=== PATIENT | female | born 1975 ===

== ENCOUNTER → 2019-07-14 00:10 | Emergency (ER) | payer SELFPAY | END | disposition left against medical advice (07) | LOC: ED 00:10 | DX: R10.9 Unspecified abdominal pain (principal); Z53.21 Procedure and treatment not carried out due to patient leaving prior to being seen by health care provider ==

== ENCOUNTER 2019-10-06 01:52 | Inpatient (IN) | payer OTHER ==
[2019-10-06] MEDS ORDERED: SODIUM CHLORIDE 0.9% 1000 ML 1,000 ML IV ONE ×2 (02:01→03:02)
[2019-10-06] MEDS ORDERED: ONDANSETRON 4 MG/2 ML INJ IV ONE (02:01)
[2019-10-06] MEDS ORDERED: MORPHINE 4 MG/1 ML INJ IV ONE (02:01)
[2019-10-06] MEDS ORDERED: ACETAMINOPHEN 500 MG TAB PO ONE (02:01)
--- NOTE | 2019-10-06 02:05 | Emergency Department Report ---
ED Abdominal Pain HPI - General Chief Complaint: Abdominal Pain Stated Complaint: ABD PAIN Time Seen by Provider: 10/06/19 01:57 Source: patient Mode of arrival: Stretcher Limitations: No Limitations - History of Present Illness Initial Comments: Patient is 44 years old female with no significant past medical history. Patient presented to the ER via EMS for evaluation of abdominal pain for the last 3 days associated with fever. Patient described her pain as lower abdominal pain, sharp in nature was no radiation. Patient denied any nausea or vomiting or diarrhea. MD Complaint: abdominal pain -: days(s) (3) Location: suprapubic Migration to: no migration Severity scale (0 -10): 6 Quality: sharp Consistency: constant - Related Data Allergies Allergy/AdvReac Type Severity Reaction Status Date / Time No Known Allergies Allergy Verified 10/06/19 03:21 ED Review of Systems ROS: Stated complaint: ABD PAIN Other details as noted in HPI Comment: All other systems reviewed and negative Constitutional: chills, fever Respiratory: denies: cough, orthopnea, shortness of breath, SOB with exertion, SOB at rest, wheezing Cardiovascular: denies: chest pain Gastrointestinal: abdominal pain. denies: diarrhea, hematemesis, melena, hematochezia Musculoskeletal: denies: back pain Neurological: denies: headache, weakness, numbness, paresthesias, confusion ED Past Medical Hx - Social History Smoking Status: Current Every Day Smoker Substance Use Type: Alcohol ED Physical Exam - General Limitations: No Limitations General appearance: alert, in no apparent distress - Head Head exam: Present: atraumatic, normocephalic, normal inspection - Eye Eye exam: Present: normal appearance - ENT ENT exam: Present: normal exam, mucous membranes dry - Neck Neck exam: Present: normal inspection, full ROM. Absent: tenderness, meningismus, lymphadenopathy, thyromegaly - Respiratory Respiratory exam: Present: normal lung sounds bilaterally - Cardiovascular Cardiovascular Exam: Present: tachycardia - GI/Abdominal GI/Abdominal exam: Present: soft, tenderness, normal bowel sounds. Absent: distended, guarding, rebound, rigid, organomegaly, mass, bruit, pulsatile mass, hernia - Extremities Exam Extremities exam: Present: normal inspection, full ROM, normal capillary refill. Absent: tenderness, pedal edema, calf tenderness - Back Exam Back exam: Present: normal inspection, full ROM. Absent: CVA tenderness (R), CVA tenderness (L), muscle spasm, paraspinal tenderness, vertebral tenderness - Neurological Exam Neurological exam: Present: alert, oriented X3, CN II-XII intact - Skin Skin exam: Present: warm, intact, normal color ED Course Vital Signs 10/06/19 10/06/19 10/06/19 01:58 02:23 02:31 Temperature 103.0 F H Pulse Rate 140 H 120 H Respiratory 18 18 Rate Blood Pressure 154/96 O2 Sat by Pulse 100 96 99 Oximetry 10/06/19 10/06/19 10/06/19 02:45 03:01 03:15 Temperature Pulse Rate 119 H 116 H 111 H Respiratory 24 27 H 15 Rate Blood Pressure 154/96 125/89 158/109 O2 Sat by Pulse 99 98 98 Oximetry 10/06/19 10/06/19 10/06/19 03:30 03:45 04:00 Temperature 99.9 F H Pulse Rate 110 H 107 H 107 H Respiratory 27 H 24 24 Rate Blood Pressure 139/95 147/95 161/113 O2 Sat by Pulse 99 99 99 Oximetry 10/06/19 10/06/19 04:15 05:05 Temperature Pulse Rate 108 H 107 H Respiratory 16 14 Rate Blood Pressure 143/89 143/89 O2 Sat by Pulse 99 Oximetry ED Medical Decision Making - Lab Data Result diagrams: 10/06/19 02:17 10/06/19 02:17 - Radiology Data Radiology results: report reviewed - Medical Decision Making Patient is 44 years old female with no significant past medical history. Patient presented to the ER via EMS for evaluation of abdominal pain for the last 3 days associated with fever. Patient described her pain as lower abdominal pain, sharp in nature was no radiation. Patient denied any nausea or vomiting or diarrhea. Patient labs reviewed and showed a lactic acid of 4.2. CT abdomen and pelvis showed a acute cholecystitis. I discussed the patient with Dr. Martinez, he advised to admit to the hospital and will follow-up with the patient. He also advised to order a right upper quadrant ultrasound. Patient given Zosyn. I discussed the patient with Dr. King, he agreed to admit the patient to medical service for further management. Critical care attestation.: If time is entered above; I have spent that time in minutes in the direct care of this critically ill patient, excluding procedure time. ED Disposition Clinical Impression: Abdominal pain, Fever, Acute cholecystitis Disposition: [id number] OP ADMIT IP TO THIS HOSP Is pt being admited?: Yes Condition: Stable Instructions: Abdominal Pain (ED)
[2019-10-06 02:40] LABS: Hematocrit 35.7 % (30.3-42.9); Hemoglobin 11.7 gm/dl (10.1-14.3); Mean Corpuscular HGB Conc 33 % (30-34); Mean Corpuscular Volume 84 fl (79-97); Platelet Count 283 K/mm3 (140-440); Red Blood Count 4.26 M/mm3 (3.65-5.03); Red Cell Distribution Width 15.2 % (13.2-15.2)
--- NOTE | 2019-10-06 02:44 | XRay Report ---
CHEST 1 VIEW, 10/06/2019 2:01 AM CLINICAL INFORMATION/INDICATION: Sepsis COMPARISON: Chest radiograph, 08/15/2019 FINDINGS: SUPPORT DEVICES: None. HEART: Cardiac silhouette is normal in size. LUNGS/PLEURA: The lungs are clear of focal airspace disease or significant pleural effusion. ADDITIONAL FINDINGS: No additional acute findings. IMPRESSION: 1. No evidence of acute cardiopulmonary process. Signer Name: Tabitha Rachel MD Signed: 10/06/2019 2:39 AM Workstation Name: [id number]
[2019-10-06] MEDS ORDERED: PIPERACILLIN/TAZOBACTAM 3.375 3.375 GM/50 ML BAG IV ONE (03:02)
[2019-10-06 03:03] LABS: Albumin 3.2 g/dL (3.9-5); Calcium 7.9 mg/dL (8.4-10.2)
[2019-10-06] MEDS ORDERED: MORPHINE 2 MG/1 ML INJ ONE ×2 (03:19→10:12)
[2019-10-06] MEDS ORDERED: MORPHINE 2 MG/1 ML INJ IV ONE (03:20)
[2019-10-06 03:35] LABS: Basophils % (Manual) 0 % (0.0-1.8); RBC Morphology Normal; Total Cells Counted 100
[2019-10-06 03:53] LABS: Bilirubin,Urine NEG (Negative); Blood,Urine NEG (Negative); Color,Urine Yellow (Yellow); Protein,Urine <15 mg/dL mg/dL (Negative); WBC,Urine < 1.0 /HPF (0.0-6.0)
--- NOTE | 2019-10-06 06:08 | Cat Scan Report ---
CT ABDOMEN AND PELVIS WITH IV CONTRAST INDICATION: Abdominal pain TECHNIQUE: Following the administration of intravenous contrast, multiple axial CT images of the abdo men and pelvis were acquired. Sagittal and coronal reformats were obtained. All CT performed at this facility utilize dose reduction techniques including automated exposure control, iterative reconstru ction and weight based dosing when appropriate to reduce patient radiation dose to as low as reasonab ly achievable. COMPARISON: No prior abdominal imaging is available for comparison FINDINGS: Limited imaging of the bilateral lung bases demonstrates bibasilar atelectasis. Abdomen: The gallbladder is distended the gallbladder is moderately distended with a moderate amount of pericholecystic fluid. There is also mild periportal edema. No radiodense gallstone is clearly erin ntified. The spleen is enlarged measuring 16 cm in greatest craniocaudal dimension. There is mild ath erosclerotic calcification of the distal abdominal aorta. There is no evidence of bowel obstruction. The appendix is not clearly identified and there has likely been previous appendectomy. Pelvis: The urinary bladder and uterus show no evidence of acute abnormality. No significant amount o f free pelvic fluid is identified. Bones and Soft Tissues: Evaluation of bony structures demonstrates no evidence of acute bony abnormal ity. Evaluation of soft tissue structures demonstrate no acute soft tissue abnormality. IMPRESSION: 1. Distended gallbladder with pericholecystic fluid most compatible with acute cholecystitis. There i s mild periportal edema. 2. Splenomegaly. Signer Name: Tabitha Rachel MD Signed: 10/06/2019 6:04 AM Workstation Name: [id number]
[2019-10-06] MEDS ORDERED: HYDROmorphone 1 MG/1 ML INJ IV ONE (06:23)
[2019-10-06] MEDS ORDERED: HYDROmorphone 1 MG/1 ML INJ ONE (06:24)
[2019-10-06] MEDS ORDERED: ONDANSETRON 4 MG/2 ML INJ IV PRN ×2 (06:39→06:47)
[2019-10-06] MEDS ORDERED: NALOXONE 0.4 MG/1 ML INJ IV PRN (06:39)
[2019-10-06] MEDS ORDERED: SODIUM CHLORIDE 0.9% 1000 ML IV SOLN IV ONE (06:39)
[2019-10-06] MEDS ORDERED: ACETAMINOPHEN 325 MG TAB PO PRN (06:39)
[2019-10-06] MEDS ORDERED: ALBUTEROL 2.5 MG/3 ML NEBU IH PRN (06:39)
[2019-10-06] MEDS ORDERED: TETANUS,DIPH,PERTUSS(ACELL) VACCINE 0.5 ML SYRINGE IM ONE (06:46)
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
[2019-10-06] MEDS ORDERED: VANCOMYCIN PHARMACY TO DOSE IV SCH (07:00)
[2019-10-06] MEDS ORDERED: VANCOMYCIN/NS 1 GM/250 ML 1 GM/250 ML BAG IV ONE (07:00)
[2019-10-06] MEDS ORDERED: LORazepam 2 MG/ML VIAL IV PRN (07:11)
[2019-10-06 07:14] LABS: Amphetamine Screen,Urine PRESUMPTIVE NEGATIVE; Methadone Screen,Urine PRESUMPTIVE NEGATIVE
[2019-10-06 07:26] LABS: Benzodiazepines Screen,Urine PRESUMPTIVE POSITIVE; Cannabinoid Screen,Urine PRESUMPTIVE POSITIVE; Cocaine Screen,Urine PRESUMPTIVE POSITIVE; Opiate Screen,Urine PRESUMPTIVE POSITIVE
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
[2019-10-06] MEDS ORDERED: THIAMINE 100 MG, FOLIC ACID 1 MG, MULTIPLE VITAMIN INJ, ADULT 10 ML in SODIUM CHLORIDE ... IV ONE (08:00)
[2019-10-06] MEDS ORDERED: CEFEPIME/NS 1 GM/100 ML 1 GM/100 ML BAG IV SCH (08:00)
[2019-10-06] MEDS: metroNIDAZOLE/NS 500 MG/100 ML 500 MG/100 ML BAG IV SCH ×3 (09:45→21:23)
[2019-10-06] MEDS ORDERED: SODIUM CHLORIDE 0.9% 1000 ML 1,000 ML ONE (10:08)
--- NOTE | 2019-10-06 10:09 | Ultrasound Report ---
LIMITED RUQ ABDOMINAL ULTRASOUND INDICATION: right upper quadrant pain. COMPARISON: CT abdomen pelvis with contrast dated 10/06/2019. FINDINGS: Pancreas: Visualized portions show no significant abnormality. Abdominal Aorta: No significant abnormality. IVC: No significant abnormality. Liver: The liver measures 12.3 cm in length. No significant abnormality. Normal hepatopedal blood fl ow in the main portal vein. Gallbladder: Trace sludge is suspected in the neck of the gallbladder. No shadowing gallstones are id entified. There is mild gallbladder wall thickening anteriorly measuring up to 6 mm.. Bile ducts: No significant abnormality. Common bile duct measures 4.2 mm. Right kidney: No significant abnormality. Free fluid: None. Additional Findings: None. IMPRESSION: Trace sludge in the gallbladder. No abnormal gallbladder distention. There is however mild thickenin g of the anterior gallbladder wall. No convincing findings of acute cholecystitis. Signer Name: Adán Michel Jr, MD Signed: 10/06/2019 10:05 AM Workstation Name: [id number]
[2019-10-06] MEDS: MORPHINE 2 MG/1 ML INJ IV PRN ×4 (10:14→22:45)
[2019-10-06] MEDS ORDERED: IPRATROPIUM/ALBUTEROL SULFATE 3 ML AMPUL.NEB IH ONE (10:15)
[2019-10-06] MEDS: IPRATROPIUM/ALBUTEROL SULFATE 3 ML AMPUL.NEB IH SCH ×2 (10:15→15:43)
[2019-10-06] MEDS ORDERED: SODIUM CHLORIDE 0.9% 100 ML IVPB IV ONE (10:40)
[2019-10-06] MEDS ORDERED: POTASSIUM CHLORIDE 10 MEQ 10 MEQ/100 ML BAG IV ONE (10:51)
[2019-10-06] MEDS ORDERED: SODIUM CHLORIDE 0.9% 500 ML 500 ML ONE (10:55)
[2019-10-06] MEDS: POTASSIUM CHLORIDE 10 MEQ 10 MEQ/100 ML BAG IV SCH ×4 (11:00→17:30)
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
[2019-10-06] MEDS ORDERED: SODIUM CHLORIDE 0.9% 1000 ML 2,000 ML IV ONE (12:00)
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
[2019-10-06] MEDS ORDERED: PIPERACIL/TAZOBACTA 4.5/NS 100 4.5 GM/100 ML VIAL IV SCH (14:00)
[2019-10-06] MEDS: CEFEPIME/NS 1 GM/100 ML 1 GM/100 ML BAG IV SCH ×2 (14:41→22:30)
[2019-10-06] MEDS: SODIUM CHLORIDE 0.45% 1000 ML 1,000 ML IV SCH ×2 (14:50→21:30)
[2019-10-06] MEDS: LORazepam 2 MG/ML VIAL IV PRN (19:59)
[2019-10-06] MEDS ORDERED: VANCOMYCIN 750 MG in SODIUM CHLORIDE 0.9% 250ML 250 ML IV SCH (22:00)
[2019-10-07] MEDS: MORPHINE 2 MG/1 ML INJ IV PRN ×2 (02:52→06:52)
[2019-10-07] MEDS: CEFEPIME/NS 1 GM/100 ML 1 GM/100 ML BAG IV SCH ×3 (05:20→21:03)
[2019-10-07] MEDS: metroNIDAZOLE/NS 500 MG/100 ML 500 MG/100 ML BAG IV SCH ×3 (05:24→21:03)
[2019-10-07] MEDS ORDERED: hydrALAZINE 20 MG/1 ML INJ IV ONE (05:33)
[2019-10-07 07:21] LABS: Basophils # (Auto) 0.1 K/mm3 (0.0-0.1); Basophils % (Auto) 0.4 % (0.0-1.8); Eosinophils # (Auto) 0.1 K/mm3 (0.0-0.4); Eosinophils % (Auto) 0.4 % (0.0-4.3); Hematocrit 33.4 % (30.3-42.9); Hemoglobin 11.1 gm/dl (10.1-14.3); Lymphocytes # (Auto) 1.9 K/mm3 (1.2-5.4); Lymphocytes % (Auto) 12.3 % (13.4-35.0); Mean Corpuscular HGB Conc 33 % (30-34); Mean Corpuscular Volume 83 fl (79-97); Monocytes # (Auto) 0.6 K/mm3 (0.0-0.8); Platelet Count 216 K/mm3 (140-440); Red Blood Count 4.02 M/mm3 (3.65-5.03); Red Cell Distribution Width 15.5 % (13.2-15.2)
[2019-10-07 07:46] LABS: Alanine Aminotransferase 20 units/L (7-56); Albumin 2.8 g/dL (3.9-5); BUN/Creatinine Ratio 11; Blood Urea Nitrogen 9 mg/dL (7-17); Calcium 8.3 mg/dL (8.4-10.2); Hemolysis Index 3
[2019-10-07] MEDS ORDERED: cloNIDine 0.1 MG TAB PO ONE (09:00)
[2019-10-07] MEDS: hydroCHLOROthiazide 25 MG TAB PO SCH (10:17)
[2019-10-07] MEDS: amLODIPine 10 MG TAB PO SCH (10:17)
[2019-10-07] MEDS: SODIUM CHLORIDE 0.45% 1000 ML 1,000 ML IV SCH ×2 (10:33→21:04)
--- NOTE | 2019-10-07 10:36 | Progress Note ---
Assessment and Plan - Patient Problems (1) Abdominal pain Current Visit: Yes Status: Acute Qualifiers: Abdominal location: right lower quadrant Qualified Code(s): R10.31 - Right lower quadrant pain Plan to address problem: Pt stable. It is not clear exactly what the cause of her pain is and the associated elevated lactate. Lactic acidosis has resolved, but patient continues to feel poorly. She was noted have a markedly elevated blood pressure this morning. With the recurrence of diarrhea and her reported history of carcinoid syndrome, I wonder if all this is related. Unfortunately, we do not have the bladder urine tests that are normally done to check for carcinoid syndrome. Our only option may be to try giving her octreotide to see if it helps. In the meantime I have ordered additional stool studies to see if there is some infection component. This morning, her LFTs are normal and she has essentially no discomfort in the right upper quadrant. The ultrasound was officially read as consistent with acute cholecystitis. The changes seen on CT may be more chronic in etiology. Would not recommend cholecystectomy at this time. If her pain persists, she is not improving, and the team does not feel this is consistent with carcinoid syndrome, then will consider dx laparoscopy to [facility]. Discussed with Dr. King. Will follow along. Please call with questions. Time=15min Subjective Date of service: 10/07/19 Patient Reports: Positive: still having pain, diarrhea, vomiting (times 1), afebrile, other (hungry). Negative: feels better (may be feeling worse), nausea Objective Vital Signs - 12hr 10/06/19 10/06/19 10/07/19 22:45 22:58 02:52 Temperature 97.9 F Pulse Rate 83 Respiratory 18 20 17 Rate Blood Pressure 164/108 Blood Pressure [Left] O2 Sat by Pulse 100 Oximetry 10/07/19 10/07/19 10/07/19 06:11 06:52 07:00 Temperature 98.0 F Pulse Rate 74 Respiratory 18 20 Rate Blood Pressure 152/109 Blood Pressure 152/109 [Left] O2 Sat by Pulse 97 Oximetry 10/07/19 10/07/19 10/07/19 08:34 08:59 10:17 Temperature Pulse Rate 74 94 H Respiratory Rate Blood Pressure 197/122 151/116 Blood Pressure [Left] O2 Sat by Pulse 95 Oximetry - General physical appearance no distress, no pain - Eyes normal occular movement - Respiratory normal expansion, normal respiratory effort - Abdomen soft, tender (primarily in right groin area. Small amount in epigastric area. RUQ not impressive), bowel sounds hypoactive, not distended, not guarding, not rigid - Psychiatric oriented to time, oriented to person, oriented to place, speech is normal, memory intact - Labs 10/07/19 07:03 10/07/19 07:03 Diabetes panel 10/07/19 Range/Units 07:03 Sodium 142 (137-145) mmol/L Potassium 3.9 D (3.6-5.0) mmol/L Chloride 110.2 H (98-107) mmol/L Carbon Dioxide 19 L (22-30) mmol/L BUN 9 (7-17) mg/dL Creatinine 0.8 (0.7-1.2) mg/dL Glucose 83 (65-100) mg/dL Calcium 8.3 L (8.4-10.2) mg/dL AST 26 (5-40) units/L ALT 20 (7-56) units/L Alkaline Phosphatase 76 (35-129) units/L Total Protein 5.7 L (6.3-8.2) g/dL Albumin 2.8 L (3.9-5) g/dL Calcium panel 10/07/19 Range/Units 07:03 Calcium 8.3 L (8.4-10.2) mg/dL Albumin 2.8 L (3.9-5) g/dL Pituitary panel 10/07/19 Range/Units 07:03 Sodium 142 (137-145) mmol/L Potassium 3.9 D (3.6-5.0) mmol/L Chloride 110.2 H (98-107) mmol/L Carbon Dioxide 19 L (22-30) mmol/L BUN 9 (7-17) mg/dL Creatinine 0.8 (0.7-1.2) mg/dL Glucose 83 (65-100) mg/dL Calcium 8.3 L (8.4-10.2) mg/dL Adrenal panel 10/07/19 Range/Units 07:03 Sodium 142 (137-145) mmol/L Potassium 3.9 D (3.6-5.0) mmol/L Chloride 110.2 H (98-107) mmol/L Carbon Dioxide 19 L (22-30) mmol/L BUN 9 (7-17) mg/dL Creatinine 0.8 (0.7-1.2) mg/dL Glucose 83 (65-100) mg/dL Calcium 8.3 L (8.4-10.2) mg/dL Total Bilirubin 0.50 (0.1-1.2) mg/dL AST 26 (5-40) units/L ALT 20 (7-56) units/L Alkaline Phosphatase 76 (35-129) units/L Total Protein 5.7 L (6.3-8.2) g/dL Albumin 2.8 L (3.9-5) g/dL
[2019-10-07] MEDS: HYDROmorphone 1 MG/1 ML INJ IV PRN ×4 (11:02→23:47)
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
[2019-10-07] MEDS: LORazepam 2 MG/ML VIAL IV PRN ×3 (13:10→23:47)
[2019-10-07] MEDS: hydrALAZINE 20 MG/1 ML INJ IV PRN (13:10)
[2019-10-08] MEDS: metroNIDAZOLE/NS 500 MG/100 ML 500 MG/100 ML BAG IV SCH ×3 (05:28→21:05)
[2019-10-08] MEDS: CEFEPIME/NS 1 GM/100 ML 1 GM/100 ML BAG IV SCH ×3 (05:28→22:24)
[2019-10-08 05:57] LABS: Hemoglobin 11.4 gm/dl (10.1-14.3); Mean Corpuscular HGB Conc 34 % (30-34); Mean Corpuscular Volume 83 fl (79-97); Platelet Count 261 K/mm3 (140-440); Red Blood Count 4.12 M/mm3 (3.65-5.03); Red Cell Distribution Width 15.3 % (13.2-15.2)
[2019-10-08] MEDS: HYDROmorphone 1 MG/1 ML INJ IV PRN ×5 (06:02→22:24)
[2019-10-08] MEDS: hydrALAZINE 20 MG/1 ML INJ IV PRN ×2 (06:03→22:24)
[2019-10-08 06:21] LABS: Albumin 3.3 g/dL (3.9-5); Calcium 8.8 mg/dL (8.4-10.2)
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
[2019-10-08] MEDS ORDERED: ALPRAZolam 0.5 MG TAB PO PRN (09:33)
[2019-10-08] MEDS: LORazepam 2 MG/ML VIAL IV PRN ×5 (10:52→23:57)
[2019-10-08] MEDS: cloNIDine 0.1 MG TAB PO SCH ×2 (10:52→21:04)
[2019-10-08] MEDS: hydroCHLOROthiazide 25 MG TAB PO SCH (10:52)
[2019-10-08] MEDS: amLODIPine 10 MG TAB PO SCH (10:52)
[2019-10-08] MEDS: oxyCODONE /ACETAMINOPHEN 5-325MG TAB PO PRN ×2 (13:30→21:05)
--- NOTE | 2019-10-08 14:00 | Progress Note ---
Assessment and Plan - Patient Problems (1) Abdominal pain Current Visit: Yes Status: Acute Qualifiers: Abdominal location: right lower quadrant Qualified Code(s): R10.31 - Right lower quadrant pain Plan to address problem: Pt stable. It is not clear exactly what the cause of her pain is and the associated elevated lactate. One of the thoughts I had was carcinoid syndrome. Unfortunate, we do not have the tests available here nor do we have octreotide to empirically treat her. The hospitalists had a good idea as well that this could be withdrawal symptoms. We will plan to get a repeat CT scan tomorrow with IV and by mouth contrast. If that does not provide any additional information and she continues to have her pain, we will plan for diagnostic laparoscopy. Pt understands and is in agreement. Discussed with Dr. Knig. Will follow along. Please call with questions. Time=15min Subjective Date of service: 10/08/19 Patient Reports: Positive: still having pain (feels that it is getting wider in location), tolerating a regular diet, flatus, bowel movement. Negative: nausea, vomiting Objective Vital Signs - 12hr 10/08/19 10/08/19 10/08/19 05:50 06:01 06:02 Temperature 98.8 F Pulse Rate Respiratory 16 17 Rate Blood Pressure 206/130 196/122 O2 Sat by Pulse Oximetry 10/08/19 10/08/19 10/08/19 06:03 06:32 08:38 Temperature Pulse Rate 77 Respiratory 17 Rate Blood Pressure 196/122 O2 Sat by Pulse 97 Oximetry 10/08/19 12:02 Temperature 98.3 F Pulse Rate 108 H Respiratory 18 Rate Blood Pressure 154/113 O2 Sat by Pulse 96 Oximetry - General physical appearance no pain, other (appears mildly upset) - Eyes normal occular movement - Respiratory normal expansion, normal respiratory effort - Abdomen soft, tender (in RLQ only), bowel sounds hypoactive, not distended, not masses, not guarding, not rigid - Integumentary no rash, no growths, no abnormal pigmentation - Psychiatric oriented to time, oriented to person, oriented to place, speech is normal, memory intact - Labs 10/08/19 05:09 10/08/19 05:09 Diabetes panel 10/08/19 Range/Units 05:09 Sodium 138 (137-145) mmol/L Potassium 3.6 (3.6-5.0) mmol/L Chloride 105.3 (98-107) mmol/L Carbon Dioxide 22 (22-30) mmol/L BUN 9 (7-17) mg/dL Creatinine 1.1 (0.7-1.2) mg/dL Glucose 90 (65-100) mg/dL Calcium 8.8 (8.4-10.2) mg/dL AST 22 (5-40) units/L ALT 18 (7-56) units/L Alkaline Phosphatase 112 (35-129) units/L Total Protein 6.4 (6.3-8.2) g/dL Albumin 3.3 L (3.9-5) g/dL Calcium panel 10/08/19 Range/Units 05:09 Calcium 8.8 (8.4-10.2) mg/dL Albumin 3.3 L (3.9-5) g/dL Pituitary panel 10/08/19 Range/Units 05:09 Sodium 138 (137-145) mmol/L Potassium 3.6 (3.6-5.0) mmol/L Chloride 105.3 (98-107) mmol/L Carbon Dioxide 22 (22-30) mmol/L BUN 9 (7-17) mg/dL Creatinine 1.1 (0.7-1.2) mg/dL Glucose 90 (65-100) mg/dL Calcium 8.8 (8.4-10.2) mg/dL Adrenal panel 10/08/19 Range/Units 05:09 Sodium 138 (137-145) mmol/L Potassium 3.6 (3.6-5.0) mmol/L Chloride 105.3 (98-107) mmol/L Carbon Dioxide 22 (22-30) mmol/L BUN 9 (7-17) mg/dL Creatinine 1.1 (0.7-1.2) mg/dL Glucose 90 (65-100) mg/dL Calcium 8.8 (8.4-10.2) mg/dL Total Bilirubin 0.30 (0.1-1.2) mg/dL AST 22 (5-40) units/L ALT 18 (7-56) units/L Alkaline Phosphatase 112 (35-129) units/L Total Protein 6.4 (6.3-8.2) g/dL Albumin 3.3 L (3.9-5) g/dL
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
[2019-10-08] MEDS: hydrALAZINE 25 MG TAB PO SCH (21:05)
[2019-10-09] MEDS ORDERED: hydrALAZINE 20 MG/1 ML INJ IV PRN (01:07)
[2019-10-09] MEDS: HYDROmorphone 1 MG/1 ML INJ IV PRN ×5 (02:14→19:15)
[2019-10-09] MEDS: CEFEPIME/NS 1 GM/100 ML 1 GM/100 ML BAG IV SCH ×3 (06:10→22:58)
[2019-10-09] MEDS: hydrALAZINE 25 MG TAB PO SCH ×3 (06:11→22:57)
[2019-10-09] MEDS: oxyCODONE /ACETAMINOPHEN 5-325MG TAB PO PRN ×2 (07:58→17:58)
[2019-10-09] MEDS: metroNIDAZOLE/NS 500 MG/100 ML 500 MG/100 ML BAG IV SCH ×3 (07:59→23:51)
[2019-10-09] MEDS: LORazepam 2 MG/ML VIAL IV PRN (09:03)
--- NOTE | 2019-10-09 10:14 | Cat Scan Report ---
CT abdomen pelvis w con INDICATION: Evaluate RLQ/right groin for causes of pain. TECHNIQUE: All CT scans at this location are performed using the following dose modulation technique: Automated exposure control. Helical slices were obtained through the abdomen and pelvis. 50 cc of Omnipaque 300 is administered. COMPARISON: CT scan dated 10/06/2019 FINDINGS: Abdomen: There is mild dependent atelectasis in the lung bases. The liver, spleen, pancreas, adrenal glands, kidneys, and small bowel are unchanged from 10/06. There is mild gallbladder wall edema this is mildly improved but has not resolved entirely. Pelvis: Surgical clips are noted adjacent to the cecum suggesting prior appendectomy. There is no obs truction or inflammation. Phleboliths are noted. There are small lymph nodes noted in the groins. No hernia is seen.. There is no inflammatory change. There is no hydronephrosis. No ureteral calculi are seen. On review of bone windows, no acute osseous abnormalities are seen. IMPRESSION: 1. There is mild gallbladder wall edema. This is improved but has not resolved since the prior study. This raises concern for cholecystitis but is not definitive. If cholecystitis is a clinical concern, nuclear medicine HIDA scan can be obtained to further evaluate. 2. There is no bowel obstruction. There is no inflammatory change. There are no abnormal fluid collec tions. 3. Surgical clips are noted in the right lower quadrant adjacent to the cecum suggesting prior append ectomy. No hernia is seen. Signer Name: Chidi King MD Signed: 10/09/2019 10:09 AM Workstation Name: [id number]
--- NOTE | 2019-10-09 11:11 | Consultation ---
History of Present Illness - Reason for Consult Consult date: 10/09/19 Reason for consult: Mental Health Evaluation Requesting physician: ADITYA ARRIAGA - Chief Complaint Chief complaint: "I have anxiety bad" - History of Present Psychiatric Illness 44 y.o. white female who presented to the ER for abdominal pain. Psychiatry was consulted to see the patient for anxiety and substance abuse. Today the patient was emotional during the assessment. She stated that she have dealt with substance abuse for several years along with depression. She stated that she use "drugs sometimes." She stated that her drug use increases when she is experiencing pain throughout the day. She denies every day use of benzos, but admitted to smoking marijuana often. She stated, "I usually take a Xanax to help me sleep sometimes." She denies using cocaine when asked. She stated that she have been to rehab in the past and is willing to try rehab once discharged. She denies SI/HI's and AVH's. She denies a poor appetite, but acknowledged erratic sleep. She stated that she drink (etoh) socially. She denies a hx of alcohol withdrawals (etoh). Per the PDMP, the patient have several prescriptions for benzos and opioids. Medications and Allergies Allergies Allergy/AdvReac Type Severity Reaction Status Date / Time gabapentin AdvReac Hives Verified 10/06/19 15:16 Home Medications Medication Instructions Recorded Confirmed Last Taken Type No Known Home Medications [No 10/06/19 10/06/19 Unknown History Reported Home Medications] Active Meds: Active Medications Acetaminophen (Tylenol) 650 mg PO Q4H PRN PRN Reason: Pain MILD(1-3)/Fever >100.5/FARRELL Last Admin: 10/06/19 16:01 Dose: 650 mg Documented by: Albuterol (Proventil) 2.5 mg IH Q3HRT PRN PRN Reason: Shortness Of Breath Amlodipine Besylate (Amlodipine) 10 mg PO QDAY [facility] Last Admin: 10/08/19 10:52 Dose: 10 mg Documented by: Clonidine HCl (Catapres) 0.2 mg PO Q12HR CHRISTIANO Hydralazine HCl (Apresoline) 50 mg PO Q8HR [facility] Last Admin: 10/09/19 06:11 Dose: 50 mg Documented by: Hydralazine HCl (Apresoline) 20 mg IV Q4H PRN PRN Reason: Hypertension Hydromorphone HCl (Dilaudid) 1 mg IV Q4H PRN PRN Reason: Pain , Severe (7-10) Last Admin: 10/09/19 11:06 Dose: 1 mg Documented by: Metronidazole (Flagyl 500 Mg/100 Ml) 500 mg in 100 mls @ 100 mls/hr IV Q8HR CHRISTIANO; Protocol Last Admin: 10/09/19 07:59 Dose: 100 mls/hr Documented by: Cefepime HCl (Cefepime/Ns 1 Gm/100 Ml) 1 gm in 100 mls @ 200 mls/hr IV Q8HR CHRISTIANO Last Admin: 10/09/19 06:10 Dose: 200 mls/hr Documented by: Lorazepam (Ativan) 4 mg IV Q1HR PRN PRN Reason: Manasa 16-25 Last Admin: 10/07/19 17:23 Dose: 4 mg Documented by: Lorazepam (Ativan) 2 mg IV Q1HR PRN PRN Reason: Manasa 8-15 Last Admin: 10/09/19 09:03 Dose: 2 mg Documented by: Naloxone HCl (Naloxone) 0.1 mg IV Q2MIN PRN PRN Reason: Res Rate </= 8 or 02 SAT < 92% Ondansetron HCl (Zofran) 4 mg IV Q4H PRN PRN Reason: Nausea And Vomiting Oxycodone/Acetaminophen (Percocet 5/325) 2 tab PO Q6H PRN PRN Reason: Pain, Moderate (4-6) Last Admin: 10/09/19 07:58 Dose: 2 tab Documented by: Sodium Chloride (Sodium Chloride Flush Syringe 10 Ml) 10 ml IV BID CHRISTIANO Last Admin: 10/09/19 11:07 Dose: 10 ml Documented by: Sodium Chloride (Sodium Chloride Flush Syringe 10 Ml) 10 ml IV PRN PRN PRN Reason: LINE FLUSH Last Admin: 10/09/19 06:10 Dose: 10 ml Documented by: Past psychiatric history - Past Medical History Past Medical History: other (carcinoid syndrome) Past Surgical History: No surgical history - past Psychiatric treatment and history psychiatric treatment history: Hx of depression/anxiety/substance abuse. Denies a fam psy hx. - Social History Social history: Lives alone Mental Status Exam - Vital signs Last Vital Signs Temp 97.7 F 10/09/19 07:05 Pulse 78 10/09/19 05:31 Resp 20 10/09/19 07:05 BP 164/106 10/09/19 07:05 Pulse Ox 100 10/09/19 05:31 - Exam Narrative exam: MSE: Appearance: in hospital attire Behavior: poor eye contact Speech: regular rate and tone Mood: emotional Affect: congruent to mood Thought Process: circumstantial Thought Content: denies SI/HI's and AVH's Motor Activity: lying in bed Cognition: A/O x3 Insight: fair Judgment: variable Results Result Diagrams: 10/08/19 05:09 10/08/19 05:09 All other labs normal. Assessment and Plan Assessment and plan: Impression: Unspecified Anxiety DO. Opioid Use DO. Cannabis Use DO. Hx of Depression. Today the patient was emotional during the assessment. No acute withdrawals noted (etoh) Medical: Sepsis per the medical staff Recommendation/Plan: Start Klonopin 0.5 mg PO BID for anxiety/maintenance to prevent withdrawal seizures. Discussed the patient's benzo regimen and CIWA with her hospitalist. Do not admin benzos/narcotics concurrently. Hold off on all antidepressants at this time, the patient has a hx of Carcinoid Syndrome. Will follow up with the patient in [address] Rico Funk.
[2019-10-09] MEDS ORDERED: busPIRone 5 MG TAB PO SCH (12:00)
[2019-10-09] MEDS: cloNIDine 0.1 MG TAB PO SCH ×2 (12:27→22:56)
[2019-10-09] MEDS: clonazePAM 0.5 MG TAB PO SCH ×2 (12:27→22:57)
[2019-10-09] MEDS: amLODIPine 10 MG TAB PO SCH (12:27)
--- NOTE | 2019-10-09 14:14 | Progress Note ---
Assessment and Plan - Patient Problems (1) Abdominal pain Current Visit: Yes Status: Acute Qualifiers: Abdominal location: right lower quadrant Qualified Code(s): R10.31 - Right lower quadrant pain Plan to address problem: Pt stable. It is not clear exactly what the cause of her pain is and the associated elevated lactate. One of the thoughts I had was carcinoid syndrome. Unfortunate, we do not have the tests available here nor do we have octreotide to empirically treat her. The hospitalists had a good idea as well that this could be withdrawal symptoms. CT scan was not helpful in identifying a cause for her RLQ pain. Discussed option of dx laparoscopy. Procedure, risks, benefits discussed. all questions answered. Consent obtained. Proceed to OR today. Discussed with Dr. King. Will follow along. Please call with questions. Time=15min Subjective Date of service: 10/09/19 Patient Reports: Positive: no new complaints (pain in unchanged. ), still having pain, flatus, afebrile. Negative: nausea, vomiting Objective Vital Signs - 12hr 10/09/19 10/09/19 10/09/19 05:31 07:05 12:26 Temperature 97.8 F 97.7 F 98.6 F Pulse Rate 78 108 H Respiratory 20 20 18 Rate Blood Pressure 171/110 164/106 187/135 O2 Sat by Pulse 100 98 Oximetry 10/09/19 12:27 Temperature Pulse Rate 106 H Respiratory Rate Blood Pressure 187/135 O2 Sat by Pulse Oximetry - General physical appearance no distress, no pain, other (was easily awakened from sleep) - Eyes normal occular movement - Respiratory normal expansion, normal respiratory effort - Abdomen soft, tender (in RLQ (unchanged)), bowel sounds hypoactive, not distended, not guarding, not rigid - Integumentary no rash, no growths, no abnormal pigmentation - Psychiatric oriented to time, oriented to person, oriented to place, speech is normal, memory intact - Labs 10/08/19 05:09 10/08/19 05:09
--- NOTE | 2019-10-09 15:36 | Anesthesia Consultation ---
Anesthesia Consult and Med Hx Date of service: 10/09/19 - Airway Anesthetic Teeth Evaluation: Good ROM Head & Neck: Adequate Mental/Hyoid Distance: Adequate Mallampati Class: Class I Intubation Access Assessment: Good - Pulmonary Exam CTA: Yes - Cardiac Exam Cardiac Exam: RRR - Pre-Operative Health Status ASA Pre-Surgery Classification: ASA3, Emergency Proposed Anesthetic Plan: General - Pulmonary Hx Smoking: Yes (<1 pack per week) Hx Respiratory Symptoms: No - Cardiovascular System Hx Hypertension: Yes (no meds at home. Poorly controlled while inpatient.) Hx Heart Attack/AMI: No Hx Percutaneous Transluminal Coronary Angioplasty (PTCA): No Hx Cardia Arrhythmia: No - Central Nervous System Hx Seizures: No CVA: No Hx Psychiatric Problems: Yes (anxiety, depression; takes benzos prn) - Gastrointestinal Hx Gastroesophageal Reflux Disease: No - Endocrine Hx Renal Disease: No Hx Liver Disease: No Hx Insulin Dependent Diabetes: No Hx Non-Insulin Dependent Diabetes: No Hx Thyroid Disease: No - Hematic Hx Anemia: Yes - Other Systems Hx Substance Use: Yes (THC, cocaine; denies cocaine use in last 1 week) Hx Obesity: No
--- NOTE | 2019-10-09 15:36 | Anesthesia Day of Surgery ---
Anesthesia Day of Surgery - Day of Surgery Patient Examined: Yes Patient H&P Reviewed: Yes Patient is NPO: Yes
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
[2019-10-09] MEDS ORDERED: DOXAZOSIN 1 MG TAB PO SCH (16:00)
[2019-10-09] MEDS: FAMOTIDINE 20 MG/2 ML INJ IV SCH ×2 (17:58→22:56)
[2019-10-09] MEDS ORDERED: HYDROmorphone 1 MG/1 ML INJ IV PRN (19:33)
[2019-10-09] MEDS ORDERED: LIDOCAINE MPF (2%) 20 MG/1 ML VIAL 5 ML ONE (19:34)
[2019-10-09] MEDS ORDERED: PROPOFOL 200 MG/20 ML VIAL IV ONE (19:34)
[2019-10-09] MEDS ORDERED: HYDROmorphone 1 MG/1 ML INJ ONE ×2 (19:34→21:45)
[2019-10-09] MEDS ORDERED: ROCURONIUM 50 MG/5 ML INJ IV ONE (19:37)
[2019-10-09] MEDS ORDERED: LIDOCAINE (1%) 10 MG/1 ML VIAL 20 ML MDV ONE (19:50)
[2019-10-09] MEDS ORDERED: BUPIVACAINE/PF (0.5%) 5 MG/1 ML 30 ML VIAL INFILTRATI ONE ×2 (19:50→20:41)
[2019-10-09] MEDS ORDERED: MIDAZOLAM 2 MG/2 ML INJ ONE (20:04)
[2019-10-09] MEDS ORDERED: LIDOCAINE (1%) 10 MG/1 ML VIAL 20 ML MDV INFILTRATI ONE (20:41)
[2019-10-09] MEDS ORDERED: SODIUM CHLORIDE 0.9% IRR 1,000 ML BOTTLE IR ONE (20:41)
[2019-10-09] MEDS ORDERED: dexAMETHasone 20 MG/5 ML VIAL ONE (21:11)
[2019-10-09] MEDS ORDERED: ONDANSETRON 4 MG/2 ML INJ ONE (21:11)
[2019-10-09] MEDS ORDERED: GLYCOPYRROLATE 0.4 MG/2 ML INJ ONE (21:20)
[2019-10-09] MEDS ORDERED: NEOSTIGMINE 10MG/10 ML INJ MDV ONE (21:20)
--- NOTE | 2019-10-09 21:22 | Post Operative Note ---
Date of procedure: 10/09/19 (dictation:[id number]) Pre-op diagnosis: Right groin pain; h/o carcinoid syndrome Post-op diagnosis: same Findings: minimal adhesions. No evidence of carcinoid tumors or prior surgery Gallbladder normal Procedure: Dx Lap with lysis of adhesions IVF 800cc UOP 200cc min EBL Anesthesia: RODRIGO Surgeon: RUFINO MELENDEZ Estimated blood loss: minimal Pathology: none Condition: stable Disposition: PACU
[2019-10-09] MEDS ORDERED: LACTATED RINGERS 1,000 ML ONE (21:50)
[2019-10-09] MEDS ORDERED: MIRTAZAPINE 15 MG TAB PO SCH (22:00)
--- NOTE | 2019-10-09 23:13 | Post Anesthesia Evaluation ---
- Post Anesthesia Evaluation Patient Participated: Yes Airway Patent: Yes Stable Respiratory Function: Yes Nausea/Vomiting: No Temp > 96.8F: Yes Pain Manageable: Yes Adequeate Hydration: Yes Anesthesia Complications: No
[2019-10-10] MEDS: HYDROmorphone 1 MG/1 ML INJ IV PRN ×3 (04:11→13:00)
[2019-10-10] MEDS: metroNIDAZOLE/NS 500 MG/100 ML 500 MG/100 ML BAG IV SCH ×2 (05:50→13:02)
[2019-10-10] MEDS: oxyCODONE /ACETAMINOPHEN 5-325MG TAB PO PRN (05:50)
[2019-10-10] MEDS: CEFEPIME/NS 1 GM/100 ML 1 GM/100 ML BAG IV SCH ×2 (05:50→13:02)
[2019-10-10] MEDS: hydrALAZINE 25 MG TAB PO SCH (05:53)
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
--- NOTE | 2019-10-10 10:41 | Progress Note ---
Subjective - Reason for Consult Consult date: 10/10/19 Reason for consult: Psychiatry Follow-up - Chief Complaint Chief complaint: "I got some rest prior to my surgery" 44 y.o. white female who presented to the ER for abdominal pain. Psychiatry was consulted to see the patient for anxiety and substance abuse. Today the patient was calm and cooperative during the assessment. She stated that she got rest prior to her surgery last night. She stated that she is interested in rehab services once discharged. She rate her anxiety 3/10, with 10 being the worse. She denies SI/HI's and AVH's. She denies any side effects from her medication. Mental Status Exam - Vital signs Last Vital Signs Temp 97.5 F L 10/10/19 05:21 Pulse 108 H 10/10/19 05:53 Resp 15 10/10/19 05:21 BP 108/75 10/10/19 05:53 Pulse Ox 96 10/10/19 05:21 - Exam Narrative exam: MSE: Appearance: in hospital attire Behavior: regular eye contact Speech: regular rate and tone Mood: "better" Affect: congruent to mood Thought Process: logical Thought Content: denies SI/HI's and AVH's Motor Activity: lying in bed Cognition: A/O x3 Insight: fair Judgment: fair Assessment and Plan Impression: Unspecified Anxiety DO. Opioid Use DO. Cannabis Use DO. Hx of Depression. Today the patient was calm and cooperative during the assessment. No acute withdrawals noted (etoh) Medical: Sepsis per the medical staff Recommendation/Plan: Continue Klonopin 0.5 mg PO BID for anxiety/maintenance to prevent withdrawal seizures. Discussed the patient's benzo regimen and CIWA with her hospitalist. Do not admin benzos/narcotics concurrently. Hold off on all antidepressants at this time, the patient has a hx of Carcinoid Syndrome. Will follow up with the patient in 24 hours. Will staff with Dr Rico Funk.
[2019-10-10] MEDS: FAMOTIDINE 20 MG/2 ML INJ IV SCH (10:46)
[2019-10-10] MEDS: amLODIPine 10 MG TAB PO SCH (10:47)
[2019-10-10] MEDS: clonazePAM 0.5 MG TAB PO SCH (10:48)
[2019-10-10] MEDS: cloNIDine 0.1 MG TAB PO SCH (10:50)
[2019-10-10] MEDS ORDERED: cloNIDine 0.1 MG TAB PO SCH (11:15)
[2019-10-10] MEDS ORDERED: DOXAZOSIN 1 MG TAB PO SCH (11:16)
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
[2019-10-10 13:33] VITALS: BP 126/77
--- NOTE | 2019-10-10 14:14 | Progress Note ---
Assessment and Plan - Patient Problems (1) Abdominal pain Current Visit: Yes Status: Acute Qualifiers: Abdominal location: right lower quadrant Qualified Code(s): R10.31 - Right lower quadrant pain Plan to address problem: Pt stable. s/p dx lap with lysis of adhesions - 10/09 - POD#1. No clear cause found for her pain. Pictures were taken. Intra-abdominal appearance shows no evidence of any trauma. No evidence of any tumor implants or tumor in the bowel (by palpation). No obvious signs of bowel resection. Patient was noted to have a small indirect inguinal hernia on the right. It had no contents. This would not explain her constant pain. This was explained to the patient. I unfortunately do not have a good answer for the cause of her pain. She may follow-up in the office in 10-14 days for routine postoperative visit. Okay for discharge from my standpoint. Discussed with Dr. King. Please call with questions. Subjective Date of service: 10/10/19 Patient Reports: Positive: no new complaints, still having pain, tolerating a regular diet Objective Vital Signs - 12hr 10/10/19 10/10/19 10/10/19 05:21 05:53 10:47 Temperature 97.5 F L Pulse Rate 105 H 108 H 103 H Respiratory 15 Rate Blood Pressure 108/75 108/75 100/68 O2 Sat by Pulse 96 Oximetry 10/10/19 10/10/19 10:50 12:25 Temperature 97.9 F Pulse Rate 103 H 94 H Respiratory 16 Rate Blood Pressure 100/68 126/77 O2 Sat by Pulse 99 Oximetry - General physical appearance no distress, no pain - Respiratory normal expansion, normal respiratory effort - Abdomen soft, not distended, surgical scars (C/D/I) - Integumentary no rash, no growths, no abnormal pigmentation - Psychiatric oriented to time, oriented to person, oriented to place, speech is normal, memory intact - Labs 10/08/19 05:09 10/08/19 05:09
--- NOTE | 2019-10-10 14:41 | Operative Report ---
PREOPERATIVE DIAGNOSES: 1. Right groin pain. 2. History of carcinoid syndrome. POSTOPERATIVE DIAGNOSES: 1. Right groin pain. 2. History of carcinoid syndrome. PROCEDURES: 1. Diagnostic laparoscopy. 2. Laparoscopic lysis of adhesions. ATTENDING PHYSICIAN: Felton Martinez MD ANESTHESIA: General. ESTIMATED BLOOD LOSS: Minimal. FLUIDS: 800 mL. URINE OUTPUT: 200 mL. FINDINGS: No signs of any trauma in the anterior portion of the peritoneum or adjacent bowel. Bowel was completely normal. No evidence of any prior resections. No implants were noted on the bowel by palpation. With the laparoscopic instruments, I could not appreciate any mass within the small bowel. Gallbladder was normal in appearance. Liver was fairly normal. No other abnormalities were seen in the abdomen. The patient was noted to have a small indirect inguinal hernia on the right. It had no contents. This did not seem consistent with her reports of pain. SPECIMENS: None. DRAINS: None. COMPLICATIONS: None. DISPOSITION: Stable, transferred to Recovery. INDICATIONS: This is a 44-year-old female who presented to the hospital with complaints of sudden onset of severe right lower quadrant pain. No obvious abnormalities were identified on CT scan other than a thickened gallbladder. However, her history and exam were not consistent. The patient was observed in the hospital. The patient continued to have pain. Repeat CT scan was done, which showed no evidence of any abnormalities in the right lower quadrant where her complaints of pain were. The patient ultimately assessed to be in need for diagnostic laparoscopy to rule out any subtle issues. Procedure, risks, benefits were explained to the patient. Risks included, but were not limited to infection, bleeding, pain, injury to surrounding structures, possible need for further procedures in the future. The patient understood and consented. OPERATIVE NOTE: The patient was brought to the operating room and placed on the table in supine position. After adequate general anesthesia was established, the patient was prepped and draped in the usual sterile fashion. SCDs were in place. The patient was already on antibiotics. Timeout was called. I began by placing a Veress needle in left upper quadrant. I was able to insufflate on the first attempt. Using the Optiview technique, I placed a 5 mm port in the left lower quadrant. I entered the peritoneal cavity safely. There was no injury to the underlying structures. There was no injury to the underlying structures under the Veress needle. Veress needle was removed. Under direct vision, another 5 mm port was placed through her old incision at the umbilicus and then another one in the right upper quadrant. The patient was placed in Trendelenburg position and rotated to the left. I examined the right lower quadrant anterior peritoneum very carefully. I saw no signs of trauma. There was no subtle bruising, swelling or any abnormality, appeared completely normal. Pictures were taken. I pushed down in the area where she was complaining of pain to illustrate the point of concern. She was noted to have a small indirect right inguinal hernia. There were no contents in that area. She did have a small adhesion near the distal portion of the ileum that I released. It did not seem as though it was compromising the bowel in any way, but I thought in case it could be contributing to her pain I would release it, but I did not have any strong feeling that this was a reasonable cause for her pain. She also had some mild adhesions in the midportion of the ascending colon, which we divided. I ran the small bowel laparoscopically all the way back to the ligament of Treitz. The bowel appeared completely normal. Some portions were filled with fluid, but this was much proximal compared to where she was having discomfort. Otherwise, the bowel itself showed no signs of any scarring or anything to suggest where a prior procedure may have been done. I did not palpate any masses within the bowel as I was running it. The mesentery looked normal. No implants were noted. The colon itself, as much as we could see, appeared normal. The gallbladder, which was a concern previously when she came based on CT only, was completely normal in appearance. The liver may have had a slight bit of scarring in a couple of scattered places, but no implant, nothing that looked like a tumor. Stomach was normal. No other abnormalities were found in the abdomen. Once we had completed this, ports were removed under direct vision. Abdomen was desufflated. Additional local was injected into all the sites. Skin was closed with 4-0 Monocryl subcuticular stitches. Skin was cleaned and dried. Dermabond was placed. The patient tolerated the procedure well. There were no complications. All counts were correct at the end of the case. JOB# [id number] BESSIE/KAROLINE
== END 2019-10-10 13:50 | disposition home or self-care (01) | DRG 854 ==
LOC: ED 01:52 → 3A 06:29
PROVIDERS: ADMIT Internal Medicine; ATTEND Internal Medicine
PROC: 3E0234Z Introduction of Serum, Toxoid and Vaccine into Muscle, Percutaneous Approach (ICD-10-PCS; 2019-10-06)
PROC: 0DNF4ZZ Release Right Large Intestine, Percutaneous Endoscopic Approach (ICD-10-PCS; principal; 2019-10-09)
PROC: 0DN84ZZ Release Small Intestine, Percutaneous Endoscopic Approach (ICD-10-PCS; 2019-10-09)
DX: A41.9 Sepsis, unspecified organism (principal); K81.0 Acute cholecystitis; E34.0 Carcinoid syndrome; F41.9 Anxiety disorder, unspecified; F32.9 Major depressive disorder, single episode, unspecified; F19.10 Other psychoactive substance abuse, uncomplicated; I16.0 Hypertensive urgency; F17.200 Nicotine dependence, unspecified, uncomplicated; K66.0 Peritoneal adhesions (postprocedural) (postinfection); I10 Essential (primary) hypertension; Z90.49 Acquired absence of other specified parts of digestive tract; Z23 Encounter for immunization
CPT/HCPCS: 36415; 71045; 74177; 76705; 80053; 80307; 81001; 82140; 82270; 82550; 84703; 85007; 85025; 85027; 86850; 86900; 86901; 87040; 87045; 87086; 87400; 90715; 94640; 99406; G0378; J0360; J0692; J1100; J1170; J2060; J2250; J2270; J2405; J2543; J2704; J2710; J3370; J3411; J3480; J7030; J7040; J7050; J7120; Q9967